=== PATIENT | female | born 1965 | race Caucasian/White ===

== ENCOUNTER 2019-08-18 09:27 | Outpatient (CLI) | payer OTHER, SELFPAY ==
--- NOTE | 2019-08-18 09:33 | MM_ITS ---
WS: [id number] SCREENING DIGITAL MAMMOGRAM WITH CAD HISTORY: SCREENING COMPARISON: 02/22/2018 and 02/20/2017 Bilateral CC and MLO views submitted. Computer aided detection analyzed. Breast composition: There are scattered areas of fibroglandular density. No suspicious masses, microc alcifications or architectural distortion. MM/[id number] IMPRESSION: BI-RADS: 1-Negative FOLLOW UP: 1 Year Follow-up
== END 2019-08-18 09:28 | disposition home or self-care (01) ==
LOC: RADSHAW 09:31
PROVIDERS: Family Provider Electrodiagnostic Medicine; PCP Electrodiagnostic Medicine; Visit Provider Electrodiagnostic Medicine
DX: Z12.31 Encounter for screening mammogram for malignant neoplasm of breast (principal)
CPT/HCPCS: 77067

== ENCOUNTER 2020-08-22 08:01 | Outpatient (CLI) | payer OTHER, SELFPAY ==
--- NOTE | 2020-08-22 08:10 | MM_ITS ---
WS: [id number] BILATERAL DIGITAL SCREENING MAMMOGRAPHY WITH CAD CLINICAL INFORMATION: SCREENING HISTORY: Screening mammogram. No current complaints. COMPARISON: August 18, 2019 TECHNIQUE: Bilateral CC and MLO views. FINDINGS: Scattered fibroglandular densities bilaterally. No suspicious focal mass, asymmetry, calcifications, or architectural distortion. No evidence of malignancy. MM/[id number] IMPRESSION: BI-RADS: 1-Negative FOLLOW UP: 1 Year Follow-up Recommend return to annual screening mammography.
== END 2020-08-22 08:02 | disposition home or self-care (01) ==
LOC: RADSHAW 08:03
PROVIDERS: Family Provider Electrodiagnostic Medicine; PCP Electrodiagnostic Medicine; Visit Provider Electrodiagnostic Medicine
DX: Z12.31 Encounter for screening mammogram for malignant neoplasm of breast (principal)
CPT/HCPCS: 77067

== ENCOUNTER 2021-04-08 08:29 | Outpatient (CLI) | payer OTHER, SELFPAY ==
--- NOTE | 2021-04-08 | CT_ITS ---
WS: [id number] CT NECK WITH CONTRAST HISTORY: NECK MASS TECHNIQUE: Contiguous 5 mm axial images are performed through the neck with intravenous contrast. Sag ittal and coronal reformats are also submitted. All CT scans at [facility] use at least one o f these dose optimization techniques: automated exposure control; mA and/or kV adjustment per patient size (includes targeted exams where dose is matched to clinical indication); or iterative reconstruc tion. CONTRAST: CONTRAST: Omnipaque 300; 95 mL IV. DLP: 1057.17 mGycm COMPARISON: None available. Nasopharynx, oropharynx, hypopharynx and larynx are unremarkable. No soft tissue masses or abnormal e nhancement. Torus tubarius and fossa of Rosenmuller and parapharyngeal fat are normal. Small benign cervical chain lymph nodes are identified. No adenopathy. There is a large mixed attenuation mass centered within the RIGHT neck associated with the thyroid. M arked peripheral enhancement in the center is nonenhancing and may be necrotic. Mass extends over a l ength of 5.5 cm and transversely by 3.3 anterior posterior by 3.8 cm. LEFT lobe is normal. Submandibu lar glands are normal. Straightening and reversal the normal cervical lordosis. C3 anterolisthesis by 3 mm. Visualized portions of the skull base demonstrate no abnormalities. Orbits and globes are within norm al limits. No soft tissue masses. Small mucous retention cyst in the floor of the LEFT maxillary sinus. No fluid in the mastoid air alfonso ls. Lung apices are clear. On the rn child localizer the heart appears enlarged. Mild prominence of the medi astinum is probably due to position of the patient. CT/CT neck w con* [id number] IMPRESSION: 1. Palpable mass in the RIGHT neck corresponds to large RIGHT thyroid hypervas cular mass with central necrosis or resolving hemorrhage. Mass measures 3.3 x 3 .8 cm and extends over length of 5.5 cm. There may be hemorrhagic component as this mass is decreasing in size. Suggest follow-up thyroid ultrasound for addit ional evaluation and characterization. 2. No cervical chain lymphadenopathy.
[2021-04-08] MEDS: iohexol 300 mg/mL 100 mL Btl IV (09:03)
== END 2021-04-08 08:30 | disposition home or self-care (01) ==
PROVIDERS: PCP Electrodiagnostic Medicine; Visit Provider Electrodiagnostic Medicine
DX: R22.1 Localized swelling, mass and lump, neck (principal); L04.9 Acute lymphadenitis, unspecified
CPT/HCPCS: 70491; Q9967

== ENCOUNTER 2021-09-03 15:07 | Outpatient (CLI) | payer OTHER, SELFPAY ==
--- NOTE | 2021-09-03 15:14 | MM_ITS ---
WS: [id number] BILATERAL SCREENING DIGITAL MAMMOGRAM WITH CAD HISTORY: SCREENING COMPARISON: 08/22/2020, 08/18/2019 and 02/22/2018 Bilateral CC and MLO views submitted. Computer aided detection analyzed. Breast composition: There are scattered areas of fibroglandular density. No suspicious masses, microc alcifications or architectural distortion. MM/[place] [id number] IMPRESSION: BI-RADS: 1-Negative FOLLOW UP: 1 Year Follow-up
== END 2021-09-03 15:08 | disposition home or self-care (01) ==
LOC: RADSHAW 15:11
PROVIDERS: PCP Electrodiagnostic Medicine; Visit Provider Electrodiagnostic Medicine
DX: Z12.31 Encounter for screening mammogram for malignant neoplasm of breast (principal)
CPT/HCPCS: 77067

== ENCOUNTER → 2022-01-22 08:00 | Outpatient (BNVA) | payer OTHER, SELFPAY | PROVIDERS: PCP Family Medicine; Visit Provider Family Medicine | DX: E78.5 Hyperlipidemia, unspecified (principal); R53.83 Other fatigue; Z86.39 Personal history of other endocrine, nutritional and metabolic disease | CPT/HCPCS: 80053; 80061; 84443; 85025 ==

== ENCOUNTER 2022-05-20 06:05 | Outpatient (CLI) | payer OTHER, SELFPAY ==
--- NOTE | 2022-05-20 06:30 | US_ITS ---
WS: [id number] THYROID ULTRASOUND HISTORY: thyroid us COMPARISON: CT neck 04/08/2021 Right lobe: 5.1 cm x 2.5 cm x 6.0 cm (w x ap x l). Volume: 40.5 cm3. Enlarged thyroid with central cystic component. There is mild diffuse increased vascularity. No echog enic foci. No change in size as compared to the prior CT. I suspect this may be a very large nodule r eplacing the thyroid lobe. Scattered cystic components and nodule is longer than it is tall. Left lobe: 1.7 cm x 1.8 cm x 5.0 cm (w x ap x l). Volume: 7.8 cm3. Normal size thyroid with mild heterogeneity. There is a very vague hypoechoic nodule in the mid gland measuring 1.7 x 0.8 x 2.2 cm. Mild increased vascularity with no echogenic foci. Isthmus: 0.2 cm. US/US thyroid [id number] IMPRESSION: 1. Diffusely enlarged RIGHT thyroid. Suspect this may be part of a multinodula r goiter. The entire gland appears to be replaced by a large nodule. Similar in appearance to 04/08/2021 with slightly less cystic component. 2. Heterogeneous LEFT thyroid. 3. Recommend yearly thyroid ultrasound evaluation to evaluate for progression.
== END 2022-05-20 06:06 | disposition home or self-care (01) ==
LOC: RAD 06:06
PROVIDERS: PCP Family Medicine; Visit Provider Family Medicine
DX: E04.9 Nontoxic goiter, unspecified (principal)
CPT/HCPCS: 76536

== ENCOUNTER 2022-09-08 07:10 | Outpatient (CLI) | payer OTHER, SELFPAY ==
--- NOTE | 2022-09-08 07:22 | MM_ITS ---
WS: [id number] BILATERAL SCREENING DIGITAL TOMOSYNTHESIS MAMMOGRAM WITH CAD HISTORY: SCREENING COMPARISON: 09/03/2021 and 08/22/2020 Bilateral CC and MLO views with tomosynthesis and synthetic mammography submitted. Computer aided det ection analyzed. Breast composition: There are scattered areas of fibroglandular density. No suspicious masses, microc alcifications or architectural distortion. MM/[place] [id number] IMPRESSION: BI-RADS: 1-Negative FOLLOW UP: 1 Year Follow-up
== END 2022-09-08 07:11 | disposition home or self-care (01) ==
LOC: RAD 07:15
PROVIDERS: PCP Family Medicine; Visit Provider Family Medicine
DX: Z12.31 Encounter for screening mammogram for malignant neoplasm of breast (principal)
CPT/HCPCS: 77063; 77067

== ENCOUNTER → 2022-12-16 12:01 | Outpatient (BNVA) | payer OTHER, SELFPAY | PROVIDERS: PCP Family Medicine; Visit Provider Family Medicine | DX: Z13.6 Encounter for screening for cardiovascular disorders (principal) | CPT/HCPCS: 80053; 80061; 84443; 85025 ==

== ENCOUNTER 2023-08-30 21:03 | Emergency (ER) | payer OTHER, SELFPAY ==
[2023-08-30 21:15] VITALS: BP 140/98; PULSE 91; RESP 14; TEMP 36.7; O2SAT 98; BMI 32.8
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
[2023-08-30 21:26] VITALS: BP 160/98; PULSE 88; RESP 18; O2SAT 96
[2023-08-30] MEDS: ketorolac 30 mg/mL INJ IM (22:38)
[2023-08-30 23:13] VITALS: BP 126/64; PULSE 80; RESP 16; O2SAT 95
--- NOTE | 2023-08-30 23:15 | PC.NURSE ---
Pt sent home with one tab of Cyclobenzaprine 10mg per REMANUFACTURING TECHNICIAN Rust orders.
== END 2023-08-30 23:06 | disposition home or self-care (01) ==
PROVIDERS: Emergency Provider Nurse Practitioner Family; PCP Family Medicine
DX: S16.1XXA Strain of muscle, fascia and tendon at neck level, initial encounter (principal); M50.30 Other cervical disc degeneration, unspecified cervical region; Z87.891 Personal history of nicotine dependence; E78.5 Hyperlipidemia, unspecified; Y04.2XXA Assault by strike against or bumped into by another person, initial encounter; Y92.239 Unspecified place in hospital as the place of occurrence of the external cause; Y99.0 Civilian activity done for income or pay
CPT/HCPCS: 72125; 96372; 99284; J1885

== ENCOUNTER 2023-09-11 10:50 | Outpatient (CLI) | payer OTHER, SELFPAY ==
--- NOTE | 2023-09-11 10:53 | MM_ITS ---
WS: [id number] BILATERAL 3D TOMOSYNTHESIS DIGITAL SCREENING MAMMOGRAPHY WITH CAD CLINICAL INFORMATION: SCREENING HISTORY: Screening mammogram. No current complaints. COMPARISON: 2022 TECHNIQUE: Bilateral CC and MLO views. FINDINGS: Scattered fibroglandular densities bilaterally. No suspicious focal mass, asymmetry, calcifications, or architectural distortion. No evidence of malignancy. IMPRESSION: MM/[place] [id number] BI-RADS: 1-Negative FOLLOW UP: 1 Year Follow-up Recommend return to annual screening mammography.
== END 2023-09-11 10:51 | disposition home or self-care (01) ==
LOC: RAD 10:50
PROVIDERS: PCP Family Medicine; Visit Provider Family Medicine
DX: Z12.31 Encounter for screening mammogram for malignant neoplasm of breast (principal); R92.323 Mammographic fibroglandular density, bilateral breasts
CPT/HCPCS: 77063; 77067

== ENCOUNTER → 2023-11-10 09:25 | Outpatient (BNVA) | payer OTHER, SELFPAY | PROVIDERS: PCP Family Medicine; Visit Provider Family Medicine | DX: E78.5 Hyperlipidemia, unspecified (principal) | CPT/HCPCS: 80053; 80061 ==

== ENCOUNTER 2023-11-30 06:02 | Outpatient (CLI) | payer OTHER, SELFPAY ==
--- NOTE | 2023-11-30 06:15 | US_ITS ---
WS: [id number] THYROID ULTRASOUND HISTORY: Dyslipidemia COMPARISON: 05/20/2022 Right lobe: 4.2 cm x 2.9 cm x 6.3 cm (w x ap x l). Volume: 36.9 cm3. Enlarged nodular thyroid with increased vascularity. Cystic spaces throughout the nodularity. There i s no discrete well-formed mass for which biopsy should be obtained. Left lobe: 1.5 cm x 1.9 cm x 4.9 cm (w x ap x l). Volume: 6.5 cm3. Normal sized thyroid. There is a hypoechoic nodule along the superficial anterior surface. Nodule arun sures 0.7 x 1.0 x 1.8 cm. Similar heterogeneity seen on the prior ultrasound. Isthmus: 0.5 cm. US/US thyroid [id number] IMPRESSION: 1. Stable nodular heterogeneous thyroid, greatest involving the RIGHT lobe wit h increased vascularity. May be a multinodular goiter. No change since 2. 2. No adenopathy.
== END 2023-11-30 06:03 | disposition home or self-care (01) ==
LOC: RAD 06:02
PROVIDERS: PCP Family Medicine; Visit Provider Otolaryngology
DX: E78.5 Hyperlipidemia, unspecified (principal); Z86.39 Personal history of other endocrine, nutritional and metabolic disease; E04.1 Nontoxic single thyroid nodule
CPT/HCPCS: 76536